=== PATIENT | female | born 1960 | race Caucasian/White ===

== ENCOUNTER → 2018-10-26 | Outpatient (CLI) | payer OTHER ==
[~2018-10-26] MED LIST: AMLO5 PO; ATOR10 PO; FERR325 PO; METO25ER PO; WARF1 PO
[2018-10-26 17:16] LABS: Percent Saturation 19.2 % (15.0-50.0)
== END | disposition home or self-care (01) ==
LOC: LAB 13:00 → LAB SHORT 13:00
PROVIDERS: Hospitalist
DX: D50.9 Iron deficiency anemia, unspecified (principal)
CPT/HCPCS: 83540; 83550

== ENCOUNTER → 2019-05-20 | Outpatient (CLI) | payer OTHER ==
[2019-05-20 14:13] LABS: Alanine Aminotransfer (ALT/SGP 39 U/L (12-78); Albumin, Blood 4.2 g/dL (3.4-5.0); Albumin/Globulin Ratio 1.4 (0.8-1.8); Alk Phos 52 U/L (50-136); Anion Gap 6 mmol/L (6-16); Aspartate Aminotrans (AST/SGOT 26 U/L (12-37); Bilirubin, Total 0.9 mg/dL (0.1-1.0); Blood Urea Nitrogen 18 mg/dL (8-24); Bun/Creatinine Ratio 26.9 (12.0-20.0); CHOL/HDL RATIO 3.4; CO2, Blood 27 mmol/L (21-32); Calcium, Blood 9.3 mg/dL (8.5-10.1); Chloride, Blood 109 mmol/L (98-108); Cholesterol 161 mg/dL (50-200); Creatinine, Blood 0.67 mg/dL (0.40-1.00); Globulin, Blood 3.1 g/dL (2.2-4.0); Glomerular Filtration Rate >60 (60-); Glucose, Blood 101 mg/dL (70-99); HDL Cholesterol 47 mg/dL (>39); LDL/HDL RATIO 1.8; Low Density Lipoprotein Chol 86 mg/dL (0-110); Potassium, Blood 4.2 mmol/L (3.5-5.5); Sodium, Blood 142 mmol/L (136-145); Total Protein, Blood 7.3 g/dL (6.4-8.2); Triglycerides 142 mg/dL (30-160); Very Low Density Lipoprot Chol 28 mg/dL (6-32)
[2019-05-20 14:21] LABS: International Normalized Ratio 2.34
== END | disposition home or self-care (01) ==
LOC: LAB 13:41 → LAB SHORT 13:41
PROVIDERS: Hospitalist
DX: I10 Essential (primary) hypertension (principal); I80.209 Phlebitis and thrombophlebitis of unspecified deep vessels of unspecified lower extremity; E78.5 Hyperlipidemia, unspecified
CPT/HCPCS: 80053; 80061; 85610

== ENCOUNTER 2022-07-03 16:34 | Inpatient (IN) | payer OTHER ==
[~2022-07-03] VITALS: Ht 170.2 cm; Wt 62.0 kg
[2022-07-03 16:57] LABS: BASOPHILS ABSOLUTE AUTO 0.04 K/mm3 (0.00-0.23); BASOPHILS PERCENT AUTO 0 % (0-2); EOSINOPHILS PERCENT AUTO 2 % (0-6); Hematocrit 34.8 % (33.0-51.0); IMMATURE GRAN ABSOLUTE AUTO 0.07 K/mm3 (0.00-0.10); IMMATURE GRAN PERCENT AUTO 1 % (0-1); LYMPHOCYTES ABSOLUTE AUTO 2.76 K/mm3 (0.84-5.20); LYMPHOCYTES PERCENT AUTO 28 % (21-46); MONOCYTES ABSOLUTE AUTO 0.86 K/mm3 (0.16-1.47); MONOCYTES PERCENT AUTO 9 % (4-13); Mean Corpuscular HGB 28.6 pg (26.0-34.0); Mean Corpuscular HGB Conc 34.5 g/dL (31.5-36.5); Mean Corpuscular Volume 83 fL (80-100); Mean Platelet Volume 9.4 fL (9.1-12.4); NEUTROPHILS ABSOLUTE AUTO 6.04 K/mm3 (1.96-9.15); NEUTROPHILS PERCENT AUTO 61 % (41-73); Platelet Count 301 K/mm3 (150-400); RDW Coefficient Variation 12.8 % (11.7-14.2); RDW Standard Deviation 38.7 fL (35.1-46.3); Red Blood Cell Count 4.19 M/mm3 (3.80-5.20); White Blood Cell Count 9.97 K/mm3 (4.00-11.30)
[2022-07-03 17:10] LABS: International Normalized Ratio 2.26; Prothrombin Time Results 22.5 Sec (9.7-11.5)
[2022-07-03 17:15] LABS: Albumin, Blood 3.7 g/dL (3.4-5.0); Albumin/Globulin Ratio 1.2 (0.8-1.8); Bilirubin, Total 0.4 mg/dL (0.1-1.0); Bun/Creatinine Ratio 20.4 (12.0-20.0); Calcium, Blood 8.8 mg/dL (8.5-10.1); Creatinine, Blood 0.64 mg/dL (0.40-1.00); Globulin, Blood 3.2 g/dL (2.2-4.0); Potassium, Blood 3.1 mmol/L (3.5-5.5); Total Protein, Blood 6.9 g/dL (6.4-8.2)
[2022-07-03] MEDS ORDERED: JANTOVEN5 M2 PO (18:33)
[2022-07-03 20:20] LABS: Source, Urine Clean Catch
[2022-07-03 20:38] LABS: Appearance, Urine Clear (Clear); Bilirubin, Urine Neg (Neg); Blood, Urine 2+ (Neg); Color, Urine Yellow (P-Yellow); Glucose Qualitative, Urine 1+ (Neg); Ketones, Urine Neg (Neg); Leukocyte Esterase, Urine Neg (Neg); Nitrite, Urine Neg (Neg); Protein, Urine Neg (Neg); Specific Gravity, Urine 1.015 (1.003-1.022); Urobilinogen, Urine NORM (Normal)
[2022-07-03 20:52] LABS: Bacteria Few /hpf; Squamous Epithelial Cells Rare /hpf (Few); White Blood Cells, Urine 0-2 /hpf (0-5)
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
--- NOTE | 2022-07-04 04:36 | NUR ---
SHIFT SUMMARY SINCE ARRIVAL TO THE FLOOR PT HAS BEEN RESTING COMFORTABLY. IV PAIN MEDICATION GIVEN TO REDUCE PAIN LEVEL. VOIDING WELL ON BEDPAN. VITAL SIGNS STABLE. NPO SINCE MIDNIGHT. BEDREST MAINTAINED. WILL CONTINUE TO MONITOR AND REPORT TO ONCOMING RN, CALL LIGHT IN REACH.
[2022-07-04 04:43] LABS: Hematocrit 34.2 % (33.0-51.0); Hemoglobin 11.3 g/dL (11.5-16.0); Mean Corpuscular HGB 28.1 pg (26.0-34.0); Mean Corpuscular Volume 85 fL (80-100); Mean Platelet Volume 9.5 fL (9.1-12.4); Platelet Count 288 K/mm3 (150-400); RDW Coefficient Variation 12.8 % (11.7-14.2); RDW Standard Deviation 39.4 fL (35.1-46.3); Red Blood Cell Count 4.02 M/mm3 (3.80-5.20); White Blood Cell Count 11.98 K/mm3 (4.00-11.30)
[2022-07-04 04:58] LABS: International Normalized Ratio 2.07; Prothrombin Time Results 20.7 Sec (9.7-11.5)
[2022-07-04 05:06] LABS: Bun/Creatinine Ratio 23.8 (12.0-20.0); Calcium, Blood 8.5 mg/dL (8.5-10.1); Creatinine, Blood 0.63 mg/dL (0.40-1.00); Magnesium, Blood 2.1 mg/dL (1.6-2.4); Potassium, Blood 4.1 mmol/L (3.5-5.5)
[2022-07-04 09:12] LABS: Influenza A, PCR NEGATIVE (NEGATIVE); Influenza B, PCR NEGATIVE (NEGATIVE); Resp Syncytial Virus, PCR NEGATIVE (NEGATIVE); SARS-Cov-2 (COVID-19) PCR, MMC NEGATIVE (NEGATIVE)
--- NOTE | 2022-07-04 11:30 | NUR ---
DR. MITCHELL'S OFFICE CALLED REGARDING CONSULT, PER ASSEMBLER TRIM DR. MITCHELL IS AWARE OF THE CONSULT AND WILL SEE PT SOMETIME TODAY.
--- NOTE | 2022-07-04 16:54 | NUR ---
SHIFT SUMMARY PT A&OX4, VSS/RA, EDU & ENC TCDB & I.S. AND PT DEMONSTRATED. LLE FX IMMOBILIZER ON WITH SCD ON FOOT, WIGGLES TOES; RLE BRUISE ON DUVALL, SCD ON CALF; LEFT WRIST FX IN SPLINT/SHIRA WRAP; DENIES N&T IN ALL EXT'S. REPOSITIONS SELF WELL. VOIDING WELL/BEDPAN. PAIN MANAGED WITH UZIEL, TYLENOL AND DILAUDID 0.5 ML PRN. MITRA PO GLUTON FREE/LACTOSE FREE. PLAN FOR NPO MIDNIGHT AND POSSIBLE SURGERY TOMORROW. WILL REPORT TO ONCOMING NOC RN.
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
[2022-07-05 06:03] LABS: Albumin, Blood 3.2 g/dL (3.4-5.0); Anion Gap 8 mmol/L (6-16); Blood Urea Nitrogen 17 mg/dL (8-24); Bun/Creatinine Ratio 32.9 (12.0-20.0); CO2, Blood 24 mmol/L (21-32); Chloride, Blood 105 mmol/L (98-108); Creatinine, Blood 0.52 mg/dL (0.40-1.00); Glomerular Filtration Rate 105 (60-); Glucose, Blood 136 mg/dL (70-99); Phosphorus, Blood 2.7 mg/dL (2.5-4.9); Potassium, Blood 3.9 mmol/L (3.5-5.5); Sodium, Blood 137 mmol/L (136-145)
[2022-07-05 06:17] LABS: International Normalized Ratio 1.36
[2022-07-05 08:04] LABS: BASOPHILS ABSOLUTE AUTO 0.03 K/mm3 (0.00-0.23); BASOPHILS PERCENT AUTO 0 % (0-2); EOSINOPHILS ABSOLUTE AUTO 0.03 K/mm3 (0.00-0.68); EOSINOPHILS PERCENT AUTO 0 % (0-6); Hematocrit 32.7 % (33.0-51.0); Hemoglobin 10.6 g/dL (11.5-16.0); IMMATURE GRAN ABSOLUTE AUTO 0.08 K/mm3 (0.00-0.10); IMMATURE GRAN PERCENT AUTO 1 % (0-1); LYMPHOCYTES ABSOLUTE AUTO 1.58 K/mm3 (0.84-5.20); LYMPHOCYTES PERCENT AUTO 16 % (21-46); MONOCYTES ABSOLUTE AUTO 0.91 K/mm3 (0.16-1.47); MONOCYTES PERCENT AUTO 9 % (4-13); Mean Corpuscular HGB Conc 32.4 g/dL (31.5-36.5); Mean Corpuscular Volume 87 fL (80-100); Mean Platelet Volume 9.3 fL (9.1-12.4); NEUTROPHILS ABSOLUTE AUTO 7.12 K/mm3 (1.96-9.15); NEUTROPHILS PERCENT AUTO 73 % (41-73); Platelet Count 245 K/mm3 (150-400); RDW Coefficient Variation 12.9 % (11.7-14.2); RDW Standard Deviation 40.5 fL (35.1-46.3); Red Blood Cell Count 3.78 M/mm3 (3.80-5.20); White Blood Cell Count 9.75 K/mm3 (4.00-11.30)
--- NOTE | 2022-07-05 19:01 | NUR ---
SHIFT SUMMARY PT A&OX4, VSS/2LNC. S/P ORIF LLE, GAUZE/SHIRA/IMMOBILIZER ON/ELEVATED. PAIN TREATED WITH DILAUDID 0.5 MG, OXY 10 AND TYLENOL. MITRA PO CLD. REPOSIITONS SELF WELL. VOIDING/BEDPAN. HEPARIN ORDERED, AWAITING FROM PHARMACY. REPORT PROVIDED TO MANUEL MELLO.
[2022-07-05 19:12] LABS: Anti-Xa UFH, PHA Monitoring <0.10 IU/mL
--- NOTE | 2022-07-05 23:35 | NUR ---
2335 HRS: PT C/O INCREASED PAIN. DISCUSSED INCREASED PAIN WITH DR. BELTRAN AND VILLA ORDER WAS OBTAINED.
[2022-07-06 03:14] LABS: BASOPHILS ABSOLUTE AUTO 0.02 K/mm3 (0.00-0.23); BASOPHILS PERCENT AUTO 0 % (0-2); EOSINOPHILS PERCENT AUTO 0 % (0-6); Hemoglobin 10.3 g/dL (11.5-16.0); IMMATURE GRAN ABSOLUTE AUTO 0.07 K/mm3 (0.00-0.10); IMMATURE GRAN PERCENT AUTO 1 % (0-1); LYMPHOCYTES PERCENT AUTO 11 % (21-46); MONOCYTES ABSOLUTE AUTO 1.24 K/mm3 (0.16-1.47); MONOCYTES PERCENT AUTO 11 % (4-13); Mean Corpuscular HGB 28.5 pg (26.0-34.0); Mean Corpuscular HGB Conc 33.2 g/dL (31.5-36.5); Mean Corpuscular Volume 86 fL (80-100); Mean Platelet Volume 9.2 fL (9.1-12.4); NEUTROPHILS ABSOLUTE AUTO 9.02 K/mm3 (1.96-9.15); NEUTROPHILS PERCENT AUTO 77 % (41-73); Platelet Count 263 K/mm3 (150-400); RDW Coefficient Variation 12.5 % (11.7-14.2); RDW Standard Deviation 39.2 fL (35.1-46.3); Red Blood Cell Count 3.61 M/mm3 (3.80-5.20); White Blood Cell Count 11.65 K/mm3 (4.00-11.30)
[2022-07-06 03:31] LABS: Albumin, Blood 3.1 g/dL (3.4-5.0); Anion Gap 6 mmol/L (6-16); Blood Urea Nitrogen 12 mg/dL (8-24); Bun/Creatinine Ratio 21.2 (12.0-20.0); CO2, Blood 30 mmol/L (21-32); Calcium, Blood 8.2 mg/dL (8.5-10.1); Chloride, Blood 101 mmol/L (98-108); Creatinine, Blood 0.57 mg/dL (0.40-1.00); Glomerular Filtration Rate 103 (60-); Glucose, Blood 147 mg/dL (70-99); Phosphorus, Blood 3.5 mg/dL (2.5-4.9); Potassium, Blood 3.9 mmol/L (3.5-5.5); Sodium, Blood 137 mmol/L (136-145)
--- NOTE | 2022-07-06 05:41 | NUR ---
SHIFT SUMMARY: PT IS A&OX4. VERY PLEASANT. PT PAIN WAS DIFFICULT TO MANAGE T/O THE SHIFT. DUE TO INCREASED PAIN DR. BELTRAN WAS CONTACTED AND 1MG DOSE OF DILAUDID WAS OBTAINED. MANAGED PAIN PER EMAR ORDERS, REPOSITIONING AND UNINTERRUPTED REST. EATING, DRINKING, AND VOIDING. USING BEDPAN. NONWEIGHT BEARING ON L LEG. IMMOBILIZER REMAINS IN PLACE ON L LEG. PT REPORTS FULL SENSATION IN EFFECTED LIMBS. CALLS APPROPRIATELY AND ANSWERS ACCORDINGLY. CALL LIGHT REMAINS IN REACH.
--- NOTE | 2022-07-06 14:25 | NUR ---
SHIFT SUMMARY: POD 1 LEFT HIP ORIF AND LEFT ARM NON SURGICAL FX PATIENT IS A&OX4. VS ARE WNL AND IS ON 2L NC WITH >90% OXYGEN SATS. PAIN IS MANAGED WITH IV DILAUDID, TORADOL, AND PO TYLENOL. PATIENT DID REPORT "THE PAIN PILLS DON'T SEEM TO DO MUCH TO HELP WITH THE PAIN" WHEN REFERRING TO THE OXYCODONE PILLS. LEFT LEG HAS SHIRA WRAP AND AN IMMOBILIZER IN PLACE THAT IS C/D/I. LEFT ARM IS IN A SPLINT THAT IS ALSO C/D/I. SHE IS ABLE TO MOVE FINGERS AND TOES BUT DOES REPORT SLIGHT NUMBNESS IN THE LEFT FOOT. SHE IS TO BE NON WT BEARING ON THE LEFT ARM AND LEG. SHE USES THE BEDPAN TO VOID. PATIENT IS TOLERATING PO INTAKE. CALLS APPROPRIATELY. CALL LIGHT WITHIN REACH. THE PLAN IS TO CONTINUE PAIN MANAGEMENT AND TO WORK WITH PT/OT MORE. DEPENDING ON HOW PT/OT GOES IN THE MORNING TOMORROW SHE WILL EITHER DISCHARGE TO A SNF OR HOME WITH HOME HEALTH.
--- NOTE | 2022-07-06 19:08 | NUR ---
REPORT RECEIVED FROM RIAZ DIAZ, ASSUMED CARE AT ABOUT 1500. NO ACUTE CHANGE TONIGHT, VSS, PT A/0. PAIN SEEMS TO BE WELL MANAGED WITH 2 OXYCODONE, SPOKE WITH PT ABOUT SWITCHING TO ORAL PAIN MANAGEMENT INSTEAD OF IV. PT IS AGREEABLE. SURGICAL SITES WNL. PT MOVES SELF WELL IN BED, JUST NEEDS HELP WITH BOOSTING. PT REPORTS NO BM SINCE MONDAY, PT GIVEN COLACE THIS MORNING. THIS RN MADE NOC RN AWARE. REPORT PASSED TO NOC RIAZ TURPIN.
--- NOTE | 2022-07-06 20:50 | NUR ---
2049 HRS: DISCUSSED BM PATTERN WITH PATIENT. SHE REPORTED THAT SHE IS TYPICALLY VERY REGULAR. DISCUSSED USE OF EMAR ORDERS TO HELP ENCOURAGE A BM. THE PT STATES THAT SHE WOULD LIKE TO TAKE THE SCHEDULED STOOL SOFTENERS BUT SHE DOES NOT WANT TO TAKE THE MILK OF MAGNESIA AT THIS TIME. ENCOURAGED THE PT TO LET STAFF KNOW IF SHE STARTS HAVING ABD PAIN OR DISCOMFORT. SHE REPORTS PASSING FLATUS AT THIS TIME. ABD IS SOFT UPON PALPATION. PT REPORTS THAT SHE WOULD PREFER TO TAKE THIS MEDICATION IN THE MORNING. WILL PASS ON TO DAY SHIFT RN, ADVISED PT TO NOTIFY STAFF OF ANY CHANGES.
--- NOTE | 2022-07-07 04:48 | NUR ---
SHIFT SUMMARY: A&OX4. VERY PLEASANT. PT SLEPT COMOFRTABLY FOR THE MAJORITY OF THE SHIFT. NON WEIGHT BEARING ON L LEG. IMMOBILIZER IN PLACE. PAIN WELL MANAGED T/O THE SHIFT. PT TOLERATING PO FLUIDS AND FOOD. USING BEDPAN AND TOLERATING WELL. PLANS TO WORK WITH PT/OT TODAY. REMAINS ON 02 VIA AL. CALL LIGHT WITHIN REACH.
[2022-07-07 05:22] LABS: International Normalized Ratio 1.12; Prothrombin Time Results 11.7 Sec (9.7-11.5)
--- NOTE | 2022-07-07 18:55 | NUR ---
SHIFT SUMMARY PT POD 0 ORIF LLE. DRESSING C/D/I, IMMOBILIZER TO LLE IN PLACE. PT WITH INCREASED SWELLING TO L FOOT, ORDER FOR BLE HARJIT DUPLEX TO BE DONE STAT. PT PAIN MANAGED WITH PO RAFITA 10MG. PT UP TO CHAIR T/O SHIFT. 2 MAX PIVOT ASSIST FOR ALL TX.
--- NOTE | 2022-07-08 01:07 | NUR ---
NOTED THAT ULTRASOUND WAS PUT IN ROUTINE RATHER THAN STAT. SPOKE WITH NURSING RADIOLOGY SPECIALIST. STATUS ORDER CHANGED TO STAT. TECH CALLED IN. ULTRASOUND PERFORMED. WILL AWAIT RESULTS.
--- NOTE | 2022-07-08 01:39 | NUR ---
PT SHIRA WRAP, GAUZE, AND NONSTERILE COTTON REMOVED IN ORDER FOR ULTRASOUND TO BE PERFORMED. ONCE COMPLETED, L LEG WAS REDRESSED AND WRAPPED, IMMOBILIZER PLACED.
[2022-07-08 04:52] LABS: International Normalized Ratio 1.18; Prothrombin Time Results 12.3 Sec (9.7-11.5)
--- NOTE | 2022-07-08 06:27 | NUR ---
SHIFT SUMMARY: PT PAIN WELL MANAGED T/O THE SHIFT PER EMAR ORDERS. VENOUS DUPLEX COMPLETED. PT TOLERATING PO FLUIDS AND FOOD. VOIDING. REPORTS THAT SHE IS PASSING GAS. X2 PERSON ASSIST TO BSC USING FWW WITH L PLATFORM. IMMOBILIZER IN PLACE ON L LEG. L FOOT REMAINS SWOLLEN. PT REPORTS HAVING FULL SENSATION AND DENIES N/T IN EFFECTED LIMB. PT CURRENTLY RESTING WITH CALL LIGHT IN REACH.
--- NOTE | 2022-07-08 18:48 | NUR ---
SHIFT SUMMARY PT HAS DONE WELL T/O SHIFT. PAIN MANAGED WITH TYLENOL, TORADOL, AND 10MG ROXICODONE. PT IS REQUESTING TO STAY ON SCHEDULE WITH THE TYLENOL AND TORADOL FOR PAIN MGMT. PT UP TO CHAIR, 2 MAX ASSIST WITH WALKER TO BSC. PLAN IS FOR PT TO GO TO SNF.
[2022-07-09 04:27] LABS: International Normalized Ratio 1.41; Prothrombin Time Results 14.5 Sec (9.7-11.5)
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
[2022-07-09 10:47] LABS: SARS-Cov-2 (COVID-19) PCR, MMC NEGATIVE (NEGATIVE)
--- NOTE | 2022-07-09 13:06 | NUR ---
PT TO DC TO [facility], REPORT GIVEN TO RIAZ OLIVA.
== END 2022-07-09 13:40 | DRG 493 ==
LOC: ER 16:34 → SURS 22:53
PROVIDERS: Emergency Medicine; Family Medicine; Internal Medicine; Orthopaedic Surgery; ADMIT Surgery
PROC: 0QSH04Z Reposition Left Tibia with Internal Fixation Device, Open Approach (ICD-10-PCS; principal; 2022-07-05 14:00)
DX: S82.142A Displaced bicondylar fracture of left tibia, initial encounter for closed fracture (principal); S52.502A Unspecified fracture of the lower end of left radius, initial encounter for closed fracture; S22.42XA Multiple fractures of ribs, left side, initial encounter for closed fracture; I82.512 Chronic embolism and thrombosis of left femoral vein; I82.532 Chronic embolism and thrombosis of left popliteal vein; S00.03XA Contusion of scalp, initial encounter; E87.6 Hypokalemia; I10 Essential (primary) hypertension; D64.9 Anemia, unspecified; Z20.822 Contact with and (suspected) exposure to COVID-19; S09.90XA Unspecified injury of head, initial encounter; S80.01XA Contusion of right knee, initial encounter; E78.00 Pure hypercholesterolemia, unspecified; D72.829 Elevated white blood cell count, unspecified; G43.909 Migraine, unspecified, not intractable, without status migrainosus; Z98.890 Other specified postprocedural states; Z79.811 Long term (current) use of aromatase inhibitors; Z79.01 Long term (current) use of anticoagulants; V49.50XA Passenger injured in collision with unspecified motor vehicles in traffic accident, initial encounter; Z95.828 Presence of other vascular implants and grafts; Z79.899 Other long term (current) drug therapy
CPT/HCPCS: 0241U; 29125; 36415; 70450; 71045; 71101; 71260; 72125; 73090; 73100; 73562-LT; 73630; 73700; 74177; 80048; 80053; 80069; 81001; 81025; 83735; 85025; 85027; 85520; 85610; 85730; 93971; 94762; 96374-59; 96375-59; 96376-59; 97110; 97116; 97162; 97166; 97530; 99285-25; A9270; C1713; J0690; J1170; J1644; J1650; J1885; J2250; J2370; J2405; J2550; J2704; J2795; J3010; J7120; Q9967; U0004

== ENCOUNTER → 2022-08-01 | Outpatient (CLI) | payer OTHER ==
[~2022-08-01] MED LIST changes: +JANTOVEN5 M2 PO
[2022-08-01 19:01] LABS: International Normalized Ratio 2.77; Prothrombin Time Results 27.2 Sec (9.7-11.5)
== END | disposition home or self-care (01) ==
LOC: LAB SHORT 14:15 → LAB 14:15
PROVIDERS: Hospitalist
DX: I80.209 Phlebitis and thrombophlebitis of unspecified deep vessels of unspecified lower extremity (principal)
CPT/HCPCS: 85610

== ENCOUNTER 2022-08-23 08:00 | Day surgery (SDC) | payer OTHER | END 2022-08-23 23:59 | disposition home or self-care (01) | LOC: WOUND 08:00 | DX: S81.802A Unspecified open wound, left lower leg, initial encounter (principal); Z86.718 Personal history of other venous thrombosis and embolism | CPT/HCPCS: G0463 ==

== ENCOUNTER 2022-09-06 00:18 | Day surgery (SDC) | payer OTHER | END 2022-09-06 22:59 | disposition home or self-care (01) | LOC: WOUND 00:18 | DX: S89.91XA Unspecified injury of right lower leg, initial encounter (principal); Z86.718 Personal history of other venous thrombosis and embolism; L97.222 Non-pressure chronic ulcer of left calf with fat layer exposed | CPT/HCPCS: A9270 ==

== ENCOUNTER 2022-09-13 01:49 | Day surgery (SDC) | payer OTHER | END 2022-09-13 23:06 | disposition home or self-care (01) | LOC: WOUND 01:49 | DX: L97.222 Non-pressure chronic ulcer of left calf with fat layer exposed (principal); Z86.718 Personal history of other venous thrombosis and embolism; S82.192S Other fracture of upper end of left tibia, sequela | CPT/HCPCS: A9270 ==

== ENCOUNTER 2022-09-20 02:46 | Day surgery (SDC) | payer OTHER | END 2022-09-20 23:05 | disposition home or self-care (01) | LOC: WOUND 02:46 | DX: L97.222 Non-pressure chronic ulcer of left calf with fat layer exposed (principal); S82.192S Other fracture of upper end of left tibia, sequela; Z86.718 Personal history of other venous thrombosis and embolism | CPT/HCPCS: A9270 ==

== ENCOUNTER 2022-09-27 02:05 | Day surgery (SDC) | payer OTHER | END 2022-09-27 22:45 | disposition home or self-care (01) | LOC: WOUND 02:05 | DX: S89.91XA Unspecified injury of right lower leg, initial encounter (principal); L97.222 Non-pressure chronic ulcer of left calf with fat layer exposed; Z86.718 Personal history of other venous thrombosis and embolism | CPT/HCPCS: A9270 ==

== ENCOUNTER 2022-10-11 01:18 | Day surgery (SDC) | payer OTHER | END 2022-10-11 22:47 | disposition home or self-care (01) | LOC: WOUND 01:18 | DX: L97.222 Non-pressure chronic ulcer of left calf with fat layer exposed (principal); Z86.718 Personal history of other venous thrombosis and embolism; S82.192S Other fracture of upper end of left tibia, sequela | CPT/HCPCS: A9270; G0463 ==

== ENCOUNTER 2023-08-25 08:19 | Day surgery (SDC) | payer OTHER ==
[~2023-08-25 08:19] MED LIST changes: +ALLEGRA ALLERG180 MG PO; +Flonase 0.05% N16 GM; +METO50ER PO
== END 2023-09-06 22:37 | disposition home or self-care (01) ==
LOC: MOI US 08:19
DX: C50.312 Malignant neoplasm of lower-inner quadrant of left female breast (principal)
CPT/HCPCS: 19285; 77065; A4648

== ENCOUNTER 2023-09-11 07:21 | Day surgery (SDC) | payer OTHER ==
[~2023-09-11] VITALS: Ht 160 cm; Wt 57.8 kg
[2023-09-11] VITALS (10 sets, daily range): BP systolic 123–152; BP diastolic 83–96
--- NOTE | 2023-09-11 08:17 | NUR ---
Patient up to Ambulate independently. Gait steady. Surgical site prepped with 2% Chlorhexidine cloth wipe. History, Chart, Medications and Allergies reviewed before start of procedure. Lungs clear T/O to Auscultation. Patient confirms NPO status and agrees with scheduled surgery. Pre-Op teaching done. Pt verbalizes understanding. Patient States Post-Procedure ride home has been arranged WITH .
[2023-09-11 08:25] LABS: International Normalized Ratio 1.18; Prothrombin Time Results 12.3 Sec (9.7-11.5)
--- NOTE | 2023-09-11 10:49 | NUR ---
DISCHARGE NOTE PT A&OX4, BREATHING RA, SLIGHT PAIN AT INCISION- PAIN PILL GIVEN. PT TOLERATED PO FLUIDS AND FOOD. NO OTHER COMPLAINTS. AT BEDSIDE. Patient up to Ambulate independently. Gait steady.VOIDED PRIOR TO DISCHARGE. Discharge instructions reviewed with patient. Patient verbalizes understanding. Copy given to patient to take home. Dressing to procedure site clean, dry, intact with no visible drainage, swelling, erythema or bruising noted. Discharged via wheelchair to private car for ride home.
== END 2023-09-11 10:43 | disposition home or self-care (01) ==
LOC: ORSCMMR 07:21 → ORD 08:45 → ORSCMMR 08:45
PROVIDERS: Surgery
PROC: 0JH60WZ Insertion of Totally Implantable Vascular Access Device into Chest Subcutaneous Tissue and Fascia, Open Approach (ICD-10-PCS; principal; 2023-09-11 08:45)
DX: C50.312 Malignant neoplasm of lower-inner quadrant of left female breast (principal); Z17.0 Estrogen receptor positive status [ER+]; I10 Essential (primary) hypertension; E78.5 Hyperlipidemia, unspecified; D68.69 Other thrombophilia; Z86.718 Personal history of other venous thrombosis and embolism; Z79.01 Long term (current) use of anticoagulants; Z79.899 Other long term (current) drug therapy
CPT/HCPCS: 77001; 85610; A9270; C1788; J0690; J1100; J1642; J1885; J2250; J2405; J2704; J3010; J7120

== ENCOUNTER 2024-01-31 07:33 | Day surgery (SDC) | payer OTHER ==
[2024-01-31] VITALS (19 sets, daily range): BP systolic 127–151; BP diastolic 78–93
[~2024-01-31] VITALS: Ht 160 cm; Wt 56.2 kg
[2024-01-31] MEDS ORDERED: Lactated Ringer's 1,000 ML IV SCH (07:50)
[2024-01-31] MEDS ORDERED: CeFAZolin Sodium 2,000 MG in NS 100 ML IV SCH (07:50)
[2024-01-31] MEDS ORDERED: CeFAZolin Sodium 2,000 MG VIAL ONE (08:15)
[2024-01-31] MEDS ORDERED: propofoL 20 ML IV ONE ×2 (08:22→15:11)
[2024-01-31] MEDS ORDERED: FentaNYL Citrate 50 MCG/ML 2 ML Injection ONE ×3 (08:23→12:17)
[2024-01-31] MEDS ORDERED: Lidocaine HCl 1% 5 ML SYR INJ ONE (08:25)
[2024-01-31] MEDS ORDERED: Midazolam HCl 1MG / ML 2ML Vial IV PRN (08:25)
[2024-01-31] MEDS ORDERED: Dexamethasone Sod Phos 10 MG/ML 1ML VIAL ONE (08:27)
[2024-01-31] MEDS ORDERED: Ondansetron HCl 2 MG / ML 2ML Vial ONE (08:27)
[2024-01-31] MEDS ORDERED: Methylene Blue 1% 100 MG/10 ML VIAL ONE (09:00)
[2024-01-31] MEDS ORDERED: Bupivacaine 0.5% HCl 5 MG/ML 30MLVIAL ONE (09:00)
--- NOTE | 2024-01-31 09:16 | NUR ---
PRE-OP NOTE PT A&OX4, BREATHING RA, CALM, NO COMPLAINTS, AT BEDSIDE. Ambulatory in Day Surgery Patient confirms NPO status and agrees with scheduled surgery. Pre-Op teaching done. Pt verbalizes understanding. Patient States Post-Procedure ride home has been arranged.
[2024-01-31] MEDS ORDERED: Ketorolac Tromethamine 30mg Vial ONE (10:18)
[2024-01-31] MEDS ORDERED: HYDROmorphone HCl/Pf 1MG SYR ONE (11:54)
[2024-01-31] MEDS ORDERED: HYDROcodone 5-APAP 325 TAB PO PRN (12:05)
--- NOTE | 2024-01-31 13:09 | NUR ---
1250 RECIEVED PT FROM PACU S/P LEFT BREAST LUMPECTOMY AND SENTINAL NODE. PT SLEEPY, VSS. LEFT AXILLARY AND BREAST EXOFEN IN PLACE. BREAST BINDER ON AND ICE PACK TO LEFT AXILLARY AREA. AT BEDSIDE 1255 PT TOLERTATING PO FLUIDA AND CRACKERS 1300 PO PAIN PILL GIVEN
[2024-01-31] MEDS ORDERED: Rocuronium Bromide 10 MG/ML 5ML Injection IV ONE (14:26)
[2024-01-31] MEDS ORDERED: Phenylephrine HCl 100 MCG/ML-NS 10MLSYR (1MG/10ML) ONE (14:32)
== END 2024-01-31 13:53 | disposition home or self-care (01) ==
LOC: NM 07:33 → ORSCMMR 07:33 → NM 08:00
PROVIDERS: Surgery
PROC: 07B60ZX Excision of Left Axillary Lymphatic, Open Approach, Diagnostic (ICD-10-PCS; principal; 2024-01-31 09:00)
PROC: 0HBU0ZZ Excision of Left Breast, Open Approach (ICD-10-PCS; principal; 2024-01-31 09:00)
DX: C50.312 Malignant neoplasm of lower-inner quadrant of left female breast (principal); Z17.0 Estrogen receptor positive status [ER+]; D36.0 Benign neoplasm of lymph nodes; I10 Essential (primary) hypertension; Z86.718 Personal history of other venous thrombosis and embolism; Z79.01 Long term (current) use of anticoagulants; Z79.899 Other long term (current) drug therapy; E78.5 Hyperlipidemia, unspecified; Z85.828 Personal history of other malignant neoplasm of skin
CPT/HCPCS: 38792; 76098; 88305; 88307; 88331; 88332; 88341; 88342; A9270; A9520; J0690; J1100; J1170; J1885; J2250; J2371; J2405; J2704; J3010; J7120; Q9968

== ENCOUNTER → 2024-12-03 | Outpatient (CLI) | payer OTHER ==
[2024-12-03 19:01] LABS: International Normalized Ratio 1.91; Prothrombin Time Results 19.5 Sec (9.7-11.5)
== END | disposition home or self-care (01) ==
LOC: LAB SHORT 17:45 → LAB 17:45
PROVIDERS: Hospitalist
DX: I82.512 Chronic embolism and thrombosis of left femoral vein (principal)
CPT/HCPCS: 85610